=== PATIENT | male | born 1975 ===

== ENCOUNTER 2020-12-31 11:35 | Observation (INO) ==
[2020-12-31] MEDS ORDERED: ONDANSETRON 4 MG/2 ML VIAL IV PRN (15:52)
[2020-12-31] MEDS ORDERED: DEXTROSE 50% 25 GM/50 ML VIAL IV PRN (15:52)
[2020-12-31] MEDS ORDERED: GLUCAGON 1 MG VIAL IM PRN (15:52)
[2020-12-31] MEDS ORDERED: ACETAMINOPHEN 325 MG TABLET PO PRN (15:52)
[2020-12-31] MEDS ORDERED: hydrALAZINE 20 MG/1 ML VIAL IV PRN (15:52)
[2020-12-31] MEDS ORDERED: LORazepam 2 MG/1 ML VIAL IV PRN (16:11)
[2020-12-31] MEDS: INSULIN LISPRO 100 UNIT/ML SUBCUT SCH ×2 (16:11→21:41)
[2020-12-31 16:51] LABS: Basophils % 0.4 % (0.0-0.8); Eosinophils # 0.2 10*3/uL (0.0-0.87); Eosinophils % 2.2 % (0.00-10.9); Hematocrit 41.5 VOL% (42.0-52.0); Hemoglobin 14.1 GM/DL (14.0-18.0); Immature Granulocytes % 0.4 %; Immature Granulocytes Absolute 0.03 #; Lymphocytes # 1.4 10*3/uL (1.4-4.0); Lymphocytes % 20.8 % (21.2-54.2); Mean Platelet Volume 8.9 FL (9.6-12.0); Monocytes % 9.8 % (1.7-12.7); Neutrophils % 66.4 % (38.7-73.9); Platelet Count 358 T/CUMM (130-400); Red Blood Count 4.28 MC/CUMM (3.8-5.5); Red Cell Distribution Width 12.5 % (9.3-17.3); White Blood Count 6.9 T/CUMM (4-12)
[2020-12-31] MEDS ORDERED: cefTRIAXone 2,000 MG in SODIUM CHLORIDE 0.9% 100 ML IV SCH (17:00)
[2020-12-31 17:10] LABS: Albumin 2.6 G/DL (3.4-5.0); Bilirubin,Total 0.4 MG/DL (0.20-1.00); Calcium 8.6 MG/DL (8.5-10.1); Total Protein 7.3 G/DL (6.4-8.2)
[2020-12-31] MEDS: PIPERACILLIN/TAZOBACTAM 3,375 MG in SODIUM CHLORIDE 0.9% 100 ML IV SCH (17:41)
[2020-12-31] MEDS ORDERED: INSULIN GLARGINE 100 UNIT/ML SUBCUT SCH (21:00)
[2020-12-31] MEDS: VANCOMYCIN INJ 1,250 MG in SODIUM CHLORIDE 0.9% 250 ML IV SCH (21:48)
[2021-01-01] MEDS: PIPERACILLIN/TAZOBACTAM 3,375 MG in SODIUM CHLORIDE 0.9% 100 ML IV SCH ×3 (00:34→16:22)
[2021-01-01 05:41] LABS: Basophils % 0.6 % (0.0-0.8); Eosinophils # 0.2 10*3/uL (0.0-0.87); Eosinophils % 2.4 % (0.00-10.9); Hematocrit 42.6 VOL% (42.0-52.0); Hemoglobin 14.6 GM/DL (14.0-18.0); Immature Granulocytes % 0.4 %; Immature Granulocytes Absolute 0.03 #; Lymphocytes # 1.3 10*3/uL (1.4-4.0); Lymphocytes % 18.6 % (21.2-54.2); Mean Corpuscular HGB Conc 34.3 GM/DL (32-36); Mean Corpuscular Volume 95.7 FL (87-102); Mean Platelet Volume 8.9 FL (9.6-12.0); Monocytes % 10.5 % (1.7-12.7); Neutrophils % 67.5 % (38.7-73.9); Platelet Count 360 T/CUMM (130-400); Red Blood Count 4.45 MC/CUMM (3.8-5.5); Red Cell Distribution Width 12.4 % (9.3-17.3); White Blood Count 7.2 T/CUMM (4-12)
[2021-01-01 06:07] LABS: Calcium 8.5 MG/DL (8.5-10.1); Osmolality,Calculated 279.8 MOS/KG (273-304); Potassium 4.5 MMOL/L (3.5-5.1)
[2021-01-01] MEDS ORDERED: diphenhydrAMINE 50 MG/1 ML VIAL IV PRN (07:50)
[2021-01-01] MEDS ORDERED: PROMETHAZINE INJ 25 MG in SODIUM CHLORIDE 0.9% 50 ML IV PRN (07:50)
[2021-01-01] MEDS ORDERED: MEPERIDINE 25 MG/1 ML VIAL IV PRN (07:50)
[2021-01-01] MEDS ORDERED: HYDROmorphone 2 MG/1 ML VIAL IV PRN (07:50)
[2021-01-01] MEDS ORDERED: ONDANSETRON 4 MG/2 ML VIAL IV PRN (07:50)
[2021-01-01] MEDS ORDERED: LIDOCAINE 1% 20 ML VIAL ONE (08:37)
[2021-01-01] MEDS ORDERED: BUPIVACAINE MPF 0.25% 30 ML VIAL ONE (08:37)
[2021-01-01] MEDS ORDERED: fentaNYL 100 MCG/2 ML VIAL ONE (08:44)
[2021-01-01] MEDS ORDERED: MIDAZOLAM 2 MG/2 ML VIAL ONE (08:44)
[2021-01-01] MEDS ORDERED: LIDOCAINE 2% 5 ML VIAL ONE (09:00)
[2021-01-01] MEDS ORDERED: propofoL 200 MG/20 ML VIAL IV ONE (09:00)
[2021-01-01] MEDS ORDERED: SEVOFLURANE 1 UNIT/15 MINUTE INH ONE ×2 (09:00→09:12)
[2021-01-01] MEDS ORDERED: ONDANSETRON 4 MG/2 ML VIAL ONE (09:13)
[2021-01-01] MEDS ORDERED: PHENYLEPHRINE 1 MG/10 ML SYRINGE IV ONE (09:14)
[2021-01-01] MEDS: INSULIN LISPRO 100 UNIT/ML SUBCUT SCH ×4 (10:22→21:49)
[2021-01-01] MEDS: FOLIC ACID 1 MG TABLET PO SCH (10:35)
[2021-01-01] MEDS: THIAMINE 100 MG TABLET PO SCH (10:35)
[2021-01-01] MEDS: MULTIVITAMIN (CENTRUM) TABLET PO SCH (10:35)
[2021-01-01] MEDS: lisinopriL 10 MG TABLET PO SCH (10:35)
[2021-01-01] MEDS: INSULIN GLARGINE 100 UNIT/ML SUBCUT SCH ×2 (10:36→21:49)
[2021-01-01] MEDS: PANTOPRAZOLE 40 MG TABLET PO SCH (10:36)
[2021-01-01] MEDS: NICOTINE 21 MG/24 HR PATCH TRANSDERM SCH (10:39)
[2021-01-01] MEDS: GABAPENTIN 100 MG CAPSULE PO SCH ×3 (11:33→21:49)
[2021-01-01] MEDS: VANCOMYCIN INJ 1,250 MG in SODIUM CHLORIDE 0.9% 250 ML IV SCH ×2 (11:35→21:50)
[2021-01-01] MEDS ORDERED: SIMVASTATIN 10 MG TABLET PO SCH (21:00)
[2021-01-02] MEDS: PIPERACILLIN/TAZOBACTAM 3,375 MG in SODIUM CHLORIDE 0.9% 100 ML IV SCH ×2 (01:02→08:57)
[2021-01-02] MEDS: MORPHINE 2 MG/1 ML SYRINGE IV PRN ×2 (01:13→08:58)
[2021-01-02 06:49] LABS: Basophils % 0.4 % (0.0-0.8); Eosinophils # 0.2 10*3/uL (0.0-0.87); Hematocrit 39.2 VOL% (42.0-52.0); Hemoglobin 13.5 GM/DL (14.0-18.0); Immature Granulocytes % 0.6 %; Immature Granulocytes Absolute 0.05 #; Lymphocytes # 1.5 10*3/uL (1.4-4.0); Lymphocytes % 17.3 % (21.2-54.2); Mean Corpuscular HGB Conc 34.4 GM/DL (32-36); Mean Corpuscular Volume 96.8 FL (87-102); Mean Platelet Volume 9.1 FL (9.6-12.0); Neutrophils % 67.7 % (38.7-73.9); Platelet Count 350 T/CUMM (130-400); Red Blood Count 4.05 MC/CUMM (3.8-5.5); Red Cell Distribution Width 12.5 % (9.3-17.3); White Blood Count 8.4 T/CUMM (4-12)
[2021-01-02 07:16] LABS: Calcium 8.1 MG/DL (8.5-10.1); Osmolality,Calculated 275.8 MOS/KG (273-304); Potassium 3.6 MMOL/L (3.5-5.1)
[2021-01-02] MEDS: INSULIN LISPRO 100 UNIT/ML SUBCUT SCH ×2 (08:51→13:04)
[2021-01-02] MEDS: NICOTINE 21 MG/24 HR PATCH TRANSDERM SCH (08:51)
[2021-01-02] MEDS: PANTOPRAZOLE 40 MG TABLET PO SCH (08:52)
[2021-01-02] MEDS: MULTIVITAMIN (CENTRUM) TABLET PO SCH (08:52)
[2021-01-02] MEDS: GABAPENTIN 100 MG CAPSULE PO SCH ×2 (08:52→14:49)
[2021-01-02] MEDS: FOLIC ACID 1 MG TABLET PO SCH (08:52)
[2021-01-02] MEDS: INSULIN GLARGINE 100 UNIT/ML SUBCUT SCH (08:52)
[2021-01-02] MEDS: lisinopriL 10 MG TABLET PO SCH (08:52)
[2021-01-02] MEDS: THIAMINE 100 MG TABLET PO SCH (08:52)
[2021-01-02] MEDS ORDERED: ENOXAPARIN 40 MG/0.4 ML SYRINGE SUBCUT SCH (09:00)
[2021-01-02] MEDS ORDERED: SODIUM HYPOCHLORITE 0.25% IRRIG 473 ML BOTTLE TOP SCH (10:00)
[2021-01-02] MEDS: VANCOMYCIN INJ 1,250 MG in SODIUM CHLORIDE 0.9% 250 ML IV SCH (10:01)
[2021-01-02 12:03] VITALS: BP 119/82
== END 2021-01-02 16:19 | disposition home or self-care (01) ==
LOC: SUATTDRO 14:48 → N.5E 14:48 → INTOOBSV 14:48
PROVIDERS: ADMIT Internal Medicine; ATTEND Internal Medicine